=== PATIENT | female | born 1980 | race Caucasian/White ===

== ENCOUNTER 2016-08-16 09:44 | Emergency (ER) | payer BC ==
[2016-08-16] MEDS ORDERED: OPTIRAY 350 100 ML VIAL HMH IV ONE (09:45)
[2016-08-16] MEDS ORDERED: DILAUDID 1 MG/ML AMP ONE (12:55)
[2016-08-16] MEDS ORDERED: ONDANSETRON 4 MG VIAL ONE (12:55)
[2016-08-16] MEDS ORDERED: SODIUM CHLORIDE 0.9% 1,000 ML ONE (12:56)
== END 2016-08-16 16:41 | disposition home or self-care (01) ==
LOC: ER 09:44
DX: R10.12 Left upper quadrant pain (principal)
CPT/HCPCS: 36415; 74177; 80053; 81001; 83690; 84703; 85025; 96361; 96374; 96375